=== PATIENT | female | born 1980 | race Caucasian/White ===

== ENCOUNTER 2016-09-11 08:19 | Outpatient (CLI) | payer BC ==
[~2016-09-11] VITALS: Ht 157.5 cm; Wt 66.5 kg
[2016-09-11 08:36] VITALS: Ht 157.5 cm; Wt 66.5 kg
[2016-09-11] MEDS ORDERED: PRENAT PO (08:37)
[2016-09-11 09:45] LABS: ADD UMIC YES; URINE BILIRUBIN (Dip) NEGATIVE (NEGATIVE); URINE BLOOD (Dip) 2+ (NEGATIVE); URINE COLOR LT. YELLOW (YELLOW); URINE GLUCOSE (Dip) NEGATIVE (NEGATIVE); URINE KETONES (Dip) NEGATIVE (NEGATIVE); URINE LEUKOCYTE ESTERASE (Dip) NEGATIVE (NEGATIVE); URINE NITRITE (Dip) NEGATIVE (NEGATIVE); URINE TOTAL PROTEIN (Dip) NEGATIVE (NEGATIVE); URINE UROBILINOGEN (Dip) 0.2 E.U./dL (0.1-1.0)
--- NOTE | 2016-09-11 09:53 | RADRPT ---
PROCEDURE: US OB. CLINICAL INDICATION: Size and dates , vaginal bleeding TECHNIQUE: Multiple sonographic images of the pelvis and gravid uterus were obtained. The images were reviewed on a PACS workstation. COMPARISON: No prior studies are available for comparison. FINDINGS: There is a single viable intrauterine gestation. Cardiac activity is present with 148 beats per min sarika. There is a vertex presentation. The placenta is anterior. There is no evidence for an abruption or placenta previa. There is a normal amount of amniotic fluid with an JESUS = 18.7 cm. Measurements were made in order to determine age. The results are as follows: BPD =8.2 cm HC =31.3 cm AC =32.9 cm FL =7.0 cm Estimated gestational age of approximately 35 weeks and 1 day based on ultrasound measurements. Clinical age: 35 weeks and 0 days. The estimated date of delivery is 10/15/16, based on ultrasound measurements. The EFW = 2803 g, 73.5%, based on LMP age. RPTAT: AA IMPRESSION: Single viable intrauterine gestation of approximately 35 weeks and 1 day based on ultrasound measur ements. .Neymar Strauss MD, Date Time Electronically viewed and signed by .Neymar Strauss MD, on 09/11/2016 09:53 .S/
[2016-09-11 10:04] LABS: ADD SCAN DIFF NO
[2016-09-11 10:09] LABS: BASOPHIL # 0.1 10^3/ul (0.0-0.1); BASOPHILS % 0.4 % (0.0-2.0); EOSINOPHILS # 0.2 10^3/ul (0.0-0.5); EOSINOPHILS % 1.9 % (0.0-7.0); HEMATOCRIT 38.6 % (37.0-47.0); HEMOGLOBIN 13.3 g/dl (12.0-16.0); LYMPHOCYTES # 1.5 10^3/ul (0.8-2.9); LYMPHOCYTES % 12.2 % (15.0-51.0); MEAN CORPUSCULAR HEMOGLOBIN 32.3 pg (29.0-33.0); MEAN CORPUSCULAR HGB CONC 34.5 g/dl (32.0-37.0); MEAN CORPUSCULAR VOLUME 93.7 fl (82.0-101.0); MEAN PLATELET VOLUME 9.9 fl (7.4-10.4); MONOCYTE # 0.9 10^3/ul (0.3-0.9); MONOCYTES % 7.1 % (0.0-11.0); NEUTROPHIL # 8.9 10^3/ul (1.6-7.5); NEUTROPHILS % 74.3 % (39.0-77.0); PLATELET COUNT 257 10^3/UL (140-415); RED BLOOD COUNT 4.12 10^6/ul (4.20-5.40); RED CELL DISTRIBUTION WIDTH 13.2 % (11.5-14.5)
[2016-09-11 10:40] LABS: BACTERIA,URINE FEW; URINE RBCS 0-2 /HPF (0)
--- NOTE | 2016-09-11 12:00 | CONS ---
Date/Time of Note Date/Time of Note DATE: 09/11/16 TIME: 11:54 Consultation Date/Type/Reason Admit Date/Time September 11, 2069 Triage consult This patient is a 36 years old 2 para 1 with 2 date of October 16, 2016 which makes her about 35 weeks . She came to triage area complaining of a cramping and slight vaginal bleeding since last night . On examination she is a well-developed well-nourished lady near term. Her vital signs were within normal limits ,blood pressure 19/82. Pulse rate 82. Temperature 98. On pelvic examination her cervix was closed thick and posterior no evidence of real vaginal bleeding slight pinkish discharge Reason for Consultation On ultrasound study. Her placenta was fundal the estimated weight was 2803 g. JESUS 11.7 cm her CBC and urine was within normal limits 24 HR Interval Summary Free Text/Dictation Disposition. Her contractions basically subsided with hydration. She is she was discharged home to be followed in the clinic. Patient was advised in case of a more contractions vaginal bleeding or any evidence of labor including rupture of membrane to return to the triage area again End of dictation thank you Detailed Summary Gastrointestinal: pain (SLIGHT abdominal pain, irregular contraction every 6-8 minutes) Genitourinary: bleeding (Slight pinkish vaginal discharge. As I mentioned on pelvic exam cervix was closed) Endocrine: No dry skin, No no complaints, No other, No polydypsia, No polyuria , No temp intolerance Exam/Review of Systems Results Result Diagram: 09/11/16 0910 Results 24 hrs Laboratory Tests Test 09/11/16 09:00 09/11/16 09:10 Urine Bacteria FEW Urine Bilirubin NEGATIVE Urine Clarity CLEAR Urine Color LT. YELLOW Urine Epithelial Cells FEW Urine Glucose NEGATIVE Urine Hemoglobin 2+ H Urine Ketones NEGATIVE Urine Leukocyte Esterase NEGATIVE Urine Microscopic RBC 0-2 Urine Microscopic WBC 2-5 Urine Nitrite NEGATIVE Urine Specific [place] 1.010 Urine Total Protein NEGATIVE Urine Urobilinogen 0.2 E.U./dL Urine pH 6.5 Basophils # 0.1 Basophils % 0.4 Eosinophils # 0.2 Eosinophils % 1.9 Hematocrit 38.6 Hemoglobin 13.3 Lymphocytes # 1.5 Lymphocytes % 12.2 L Mean Corpuscular Hemoglobin 32.3 Mean Corpuscular Hemoglobin Concent 34.5 Mean Corpuscular Volume 93.7 Mean Platelet Volume 9.9 Monocytes # 0.9 Monocytes % 7.1 Neutrophils # 8.9 H Neutrophils % 74.3 Nucleated Red Blood Cells # 0.0 Nucleated Red Blood Cells % 0.0 Platelet Count 257 Red Blood Count 4.12 L Red Cell Distribution Width 13.2 White Blood Count 12.0 H CALI GOTTLIEB MD Sep 11, 2016 12:00 Nucleated Red Blood Cells # 0.0 Nucleated Red Blood Cells % 0.0 Platelet Count 257 Red Blood Count 4.12 L Red Cell Distribution Width 13.2 White Blood Count 12.0 H CALI GOTTLIEB MD Sep 11, 2016 12:00
== END 2016-09-11 11:45 | disposition home or self-care (01) ==
LOC: OBT 08:19 → L-D 08:20 → OBT 11:45
PROVIDERS: ATTEND Obstetrics & Gynecology
DX: O26.893 Other specified pregnancy related conditions, third trimester (principal); R10.9 Unspecified abdominal pain; O46.93 Antepartum hemorrhage, unspecified, third trimester; O09.523 Supervision of elderly multigravida, third trimester; Z3A.35 35 weeks gestation of pregnancy
CPT/HCPCS: 36415; 76815; 81001; 85025; 86850; 86900; 86901; Z7500; 81003; G0463

== ENCOUNTER 2016-10-09 18:04 | Inpatient (IN) | payer BC ==
[~2016-10-09] VITALS: Ht 157.5 cm; Wt 67.0 kg
[~2016-10-09 18:04] MED LIST: PRENAT PO
[2016-10-09 18:14] VITALS: BP 130/65; PULSE 82; Ht 157.5 cm; Wt 67.0 kg
--- NOTE | 2016-10-09 19:59 | RADRPT ---
PROCEDURE: US OB. CLINICAL INDICATION: Leaking amniotic fluid. TECHNIQUE: Multiple sonographic images of the uterus were obtained. The images were revi ewed on a PACS workstation. COMPARISON: 09/11/2016. FINDINGS: There is a single live intrauterine gestation. heart rate is 133 beats per minute. Measurements were made in order to determine age. The results are as follows: BPD = 9.05 cm. HC = 33.54 cm. AC = 34.66 cm. FL = 7.70 cm. Estimated weight is 3545 +/- 532 grams. LMP growth percentile is 60 %. Menstrual age by ultrasound dates is 38 weeks 6 days. The estimated date of delivery is 10/17/2016. Amniotic fluid index is 9.9 cm. Position is cephalic and placenta is anterior grade III. There is no evidence for an abruption or pl acenta previa. IMPRESSION: 1. Single live intrauterine gestation of 38 weeks 6 days menstrual age by ultrasound dates. 2. The estimated date of delivery is 10/17/2016. 3. Amniotic fluid index is 9.9 cm. RPTAT: QQ .Harlan Boyce MD, Date Time Electronically viewed and signed by .Harlan Boyce MD, on 10/09/2016 19:59 .R/
[2016-10-09] MEDS ORDERED: LACTATED RINGER'S 1,000 ML IV PRN (21:28)
[2016-10-09] MEDS ORDERED: ACETAMINOPHEN/CODEINE #3 TAB PO PRN (21:30)
[2016-10-09] MEDS ORDERED: CARBOPROST 250 MCG INJ IM PRN (21:30)
[2016-10-09] MEDS ORDERED: OXYTOCIN 30 UNITS/LR 500 ML IV SCH ×2 (21:30)
[2016-10-09] MEDS ORDERED: MISOPROSTOL 200 MCG TAB PR PRN (21:30)
[2016-10-09] MEDS ORDERED: IBUPROFEN 600 MG TAB PO PRN (21:30)
[2016-10-09] MEDS ORDERED: OXYTOCIN 30 UNITS/LR 500 ML IV PRN (21:30)
[2016-10-09] MEDS ORDERED: BUTORPHANOL 2 MG INJ IV PRN ×2 (21:30)
[2016-10-09] MEDS ORDERED: METHYLERGONOVINE 0.2 MG INJ IM PRN (21:30)
[2016-10-09] MEDS ORDERED: LIDOCAINE 1% (MPF) 30 ML INJ INJ PRN (21:30)
[2016-10-09] MEDS: LACTATED RINGER'S 1,000 ML IV SCH (21:53)
[2016-10-09] MEDS ORDERED: AMPICILLIN 2 GM/NS (PMX) 100 ML IV ONE (22:00)
[2016-10-09 22:10] LABS: ADD SCAN DIFF NO
[2016-10-09 22:11] LABS: BASOPHIL # 0.1 10^3/ul (0.0-0.1); BASOPHILS % 0.4 % (0.0-2.0); EOSINOPHILS # 0.2 10^3/ul (0.0-0.5); EOSINOPHILS % 1.7 % (0.0-7.0); HEMATOCRIT 38.1 % (37.0-47.0); HEMOGLOBIN 13.3 g/dl (12.0-16.0); LYMPHOCYTES # 3.3 10^3/ul (0.8-2.9); LYMPHOCYTES % 23.3 % (15.0-51.0); MEAN CORPUSCULAR HEMOGLOBIN 32.5 pg (29.0-33.0); MEAN CORPUSCULAR HGB CONC 34.9 g/dl (32.0-37.0); MEAN CORPUSCULAR VOLUME 93.2 fl (82.0-101.0); MONOCYTE # 0.9 10^3/ul (0.3-0.9); MONOCYTES % 6.3 % (0.0-11.0); NEUTROPHIL # 9.3 10^3/ul (1.6-7.5); NEUTROPHILS % 66.4 % (39.0-77.0); PLATELET COUNT 265 10^3/UL (140-415); RED BLOOD COUNT 4.09 10^6/ul (4.20-5.40)
[2016-10-09 22:27] LABS: INR 0.91; PROTIME 12.2 Sec (12.2-14.2)
[2016-10-09 22:28] LABS: PARTIAL THROMBOPLASTIN TIME 28.3 Sec (25.0-35.0)
[2016-10-10] MEDS: LACTATED RINGER'S 1,000 ML IV SCH ×2 (02:05→06:41)
[2016-10-10] MEDS: AMPICILLIN 1 GM/NS (PMX) 50 ML IV SCH ×3 (02:05→10:00)
[2016-10-10] MEDS ORDERED: TERBUTALINE 1 ML ONE (06:10)
--- NOTE | 2016-10-10 06:19 | PN ---
Date/Time of Note Date/Time of Note DATE: 10/10/16 TIME: 06:18 OB Subjective Subjective Subjective 36 yo in labor, 2-3 cm w prolonged decel from baseline of 140's to 70's, lasting 3 min; FHT had accels prior to this and recovered spontaneously., Ctx 2-3 min. Patient pineda carvalho and Dr. Imani eldridge. HONEY AGUILAR MD Oct 10, 2016 06:19
[2016-10-10] MEDS ORDERED: CEFAZOLIN 2 GM/50 ML (PMX) 50 ML IV SCH (06:30)
[2016-10-10] MEDS ORDERED: TERBUTALINE 1 MG/ML INJ SC ONE (07:00)
[2016-10-10] MEDS ORDERED: CITRIC ACID/NA CITRATE 30 ML CUP ONE (07:11)
[2016-10-10] MEDS ORDERED: morphine SULFATE/PF (10 MG/10 ML) INJ ONE (07:18)
[2016-10-10] MEDS ORDERED: PHENYLephrine (100 MCG/ML) 5ML SYG ONE (07:19)
[2016-10-10] MEDS ORDERED: CITRIC ACID/NA CITRATE 30 ML CUP PO ONE (07:30)
[2016-10-10] MEDS ORDERED: ONDANSETRON 4 MG INJ ONE (07:31)
[2016-10-10] MEDS ORDERED: FENTAnyl 50 MCG/ML VIAL ONE (07:54)
[2016-10-10] MEDS ORDERED: HYDROmorphONE (0.2 MG/ML) 10ML SYG IV PRN ×2 (08:00)
[2016-10-10] MEDS ORDERED: NALOXONE (0.4 MG/ML) INJ IV PRN (08:00)
[2016-10-10] MEDS ORDERED: FENTAnyl 50 MCG/ML VIAL IV PRN (08:00)
[2016-10-10] MEDS ORDERED: MEPERIDINE 25 MG INJ IV PRN (08:00)
[2016-10-10] MEDS ORDERED: ONDANSETRON 4 MG INJ IV PRN (08:00)
[2016-10-10] MEDS ORDERED: HYDROmorphONE 1 MG/ML SYG IV PRN ×2 (08:00)
[2016-10-10] MEDS ORDERED: PROCHLORPERAZINE 10 MG INJ IV PRN (08:00)
[2016-10-10] MEDS ORDERED: DIPHENHYDRAMINE 50 MG INJ IV PRN (08:00)
--- NOTE | 2016-10-10 08:07 | PREOPHP ---
DATE OF ADMISSION: 10/09/2016 HISTORY OF PRESENT ILLNESS: A 36-year-old female, 2, para 1, with estimated date of delivery of 10/16/2016 at 39 weeks' gestation, who presented with spontaneous rupture of membranes. PAST MEDICAL HISTORY: Unremarkable. ALLERGIES: NO KNOWN ALLERGIES. FAMILY HISTORY: Diabetes and hypertension. PHYSICAL EXAMINATION: VITAL SIGNS: The patient is afebrile. Vital signs are stable. HEAD, NECK AND CHEST: Examination is within normal limits. ABDOMEN: Soft, nontender and gravid. EXTREMITIES: Within normal limits. NEUROLOGIC: Within normal limits. HOSPITAL COURSE: The patient was admitted with spontaneous rupture of membranes. at the time of admission, the patient was 1 cm dilated. The patient was monitored. The patient has had prolonged heart decelerations. The cervix remains about 1 to 2 cm dilated. The patient was counseled that due to heart decelerations, the patient cannot have augmentation of labor and there has been no progress of labor. The patient is for delivery by primary section due to category 2 heart tracings remote from delivery. The risks, benefits and alternatives of the procedure were explained to the patient. The patient said she understood and gave informed consent for the procedure. Dictated By: HELEN DOWNS/BOBBI Conf#: [id number] DID#: [id number] MTDD
--- NOTE | 2016-10-10 09:01 | OPR ---
DATE OF OPERATION: 10/10/2016 PREOPERATIVE DIAGNOSES: at term, with category 2 heart tracings, remote from delive ry. POSTOPERATIVE DIAGNOSES: at term with category 2 heart tracings, remote from delive ry. OPERATION PERFORMED: Primary low transverse section. SURGEON: Helen Diallo MD LIVE OUT NANNY: Dr. Travis ANESTHESIA: Spinal. ANESTHESIOLOGIST: Dr. Washburn PROCEDURE: The patient was taken to the operating room and placed on the operating table. After gaffney ccessful spinal anesthesia was given the patient was placed in the supine position. The area was pr epared and draped in the usual sterile fashion. Spinal anesthesia was tested and was satisfactory. Using a scalpel, a Pfannenstiel incision was made about 2 fingerbreadths above the symphysis pubis. The incision was carried down to the fascia. The fascia was incised and extended bilaterally with Cowart scissors. Two Grant's were used to separate the fascia from the muscle. The muscle was diss ected down to the peritoneum. The peritoneum was bluntly entered. Using scalpel, a small transvers e incision was made in the lower segment of the uterus. Upon entering the uterine cavity, the persaud ge scissors were inserted to extend the incision bilaterally and curved up. The baby was delivered from a cephalic presentation. After suctioning of clear amniotic fluid, the baby was handed off to the team in attendance. Apgars were 9 and 9. The placenta was delivered without difficult y. The uterus was closed with #1 Monocryl continuous locked. After assuring hemostasis, both ovari es and tubes were inspected and all looked normal. The peritoneal cavity was irrigated with warm sa line. The peritoneum was closed with 2-0 Vicryl continuous. The fascia was closed with #1 Vicryl c ontinuous in 2 segments. The skin was closed with logan. ESTIMATED BLOOD LOSS: 500 mL. COMPLICATIONS: None. COUNTS: All counts were correct. Dictated By: HELEN DIALLO MD GD/NTS Conf#: [id number] DID#: [id number]
--- NOTE | 2016-10-10 09:41 | DELSUM ---
Delivery Summary A-C Datetime Report Generated by CPN: 10/10/2016 09:41 DELIVERY PERSONNEL Boat Hoist Operator: Ghukasyan, Dolly MATERNAL INFORMATION Delivery Anesthesia: Spinal Medications in Delivery: 30 UNITS OF PIT IN 500 CC LR Estimated Blood Loss (ml): 500 Placenta Cultured: No Maternal Complications: Other RN Comments: SROM AT 0600 10/09/2016 LABOR SUMMARY EDC: 10/16/2016 00:00 No. Babies in Womb: 0 Attempted: No Labor Anesthesia: None LABOR INFORMATION Reason for Induction: Not Applicable Onset of Labor: 10/10/2016 19:30 Oxytocin: N/A Group B Beta Strep: Negative Group B Beta Strep: Negative Antibiotics # of Doses: 4 Antibiotics Time of Last Dose: 10/10/2016 07:31 Steroids Given: None Reason Steroids Not Administered: Not Applicable MEMBRANES Membranes Rupture Method: Spontaneous Membranes Rupture Method: Spontaneous Rupture of Membranes: 10/09/2016 06:00 Rupture of Membranes: 10/09/2016 06:00 Length of Rupture (hr): 25.70 Length of Rupture (hr): 25.70 Amniotic Fluid Color: Clear Amniotic Fluid Color: Clear Amniotic Fluid Amount: Small Amniotic Fluid Amount: Small Amniotic Fluid Odor: None Amniotic Fluid Odor: None STAGES OF LABOR Stage 3 hr: 0 Stage 3 min: 1 Total Time in Labor hr: -11 Total Time in Labor min: -47 CSECTION DELIVERY Primary Indication: Nonreassuring Stat CSection Urgency: Emergency CSection Incidence: Primary Labor: Labor Elective: Elective CSection Incision: Lower Uterine Transverse BABY A INFORMATION Delivery Date/Time: 10/10/2016 07:42 Method of Delivery: Born in Route : No : N/A Forceps: N/A Vacuum Extraction: N/A Shoulder Dystocia : N/A SHOULDER DYSTOCIA BABY A Infant Delivery Date/Time: 10/10/2016 07:42 PRESENTATION/POSITION BABY A Presentation: Cephalic Cephalic Presentation: Vertex Vertex Position: Left Occipital Anterior Breech Presentation: N/A PLACENTA INFORMATION BABY A Placenta Delivery Time : 10/10/2016 07:43 Placenta Method of Delivery: Manual Removal Placenta Status: Delivered SCORES BABY A Heart Rate 1 min: >100 bpm Resp Effort 1 min: Good Cry Reflex Irritability 1 min: Cough/Sneeze/Pulls Away Muscle Tone 1 min: Active Motion Color 1 min: Body Redgranite, Extremit Blue Resuscitation Effort 1 min: Tactile Stimulation SCORE 1 MIN: 9 Heart Rate 5 min: >100 bpm Resp Effort 5 min: Good Cry Reflex Irritability 5 min: Cough/Sneeze/Pulls Away Muscle Tone 5 min: Active Motion Color 5 min: Body Redgranite, Extremit Blue Resuscitation Effort 5 min: Tactile Stimulation SCORE 5 MIN: 9 INFORMATION BABY A Gestational Age at Delivery: 39.1 Gestational Status: Full Term- 39- 40.6 Weeks Outcome : Liveborn Condition : Stable Sex: Male IDENTIFICATION/MEDS BABY A ID Band Number: [id number] ID Band Location: Right Leg; Left Arm Sensor Applied: Yes Sensor Number: [id number] Sensor Location : Cord Clamp Vitamin K Given : Not Given Erythromycin Given: Not Given WEIGHT/LENGTH BABY A Infant Birthweight (gm): 3480 Weight (lb): 7 Infant Weight (oz): 11 Length (in): 19.50 Infant Length (cm): 49.53 CORD INFORMATION BABY A No. Cord Vessels: 3 Nuchal Cord : N/A Cord Blood Taken: Yes Suction: Mouth; Nose ASSESSMENT BABY A Infant Complications: Extended Bradycardi Physical Findings at Delivery: Within Normal Limits Infant Respirations: Appears Normal [employer] Manager/ALS Called : No Infant Care By: URIEL Leone RN Transferred To: Remains with Mother
[2016-10-10] MEDS: KETOROLAC 30 MG INJ IV PRN (11:12)
[2016-10-10 12:20] VITALS: BP 124/64; PULSE 82; RESP 19
[2016-10-10] MEDS ORDERED: LACTATED RINGER'S 1,000 ML IV SCH (12:24)
[2016-10-10] MEDS ORDERED: OXYCODONE/ACETAMINOPHEN (5/325) TAB PO PRN (12:30)
[2016-10-10] MEDS ORDERED: CARBOPROST 250 MCG INJ IM PRN (12:30)
[2016-10-10] MEDS ORDERED: LANOLIN 7 GM TUBE TOP PRN (12:30)
[2016-10-10] MEDS ORDERED: METHYLERGONOVINE 0.2 MG INJ IM PRN (12:30)
[2016-10-10] MEDS ORDERED: OXYTOCIN 30 UNITS/LR 500 ML IV PRN (12:30)
[2016-10-10] MEDS ORDERED: MISOPROSTOL 200 MCG TAB PR PRN (12:30)
[2016-10-10] MEDS: OXYTOCIN 30 UNITS/LR 500 ML IV SCH ×2 (12:33→17:37)
[2016-10-10 12:35] VITALS: BP 126/71; PULSE 78; RESP 18
[2016-10-10 12:50] VITALS: BP 132/72; PULSE 74; RESP 17
[2016-10-10 13:20] VITALS: BP 134/67; PULSE 86; RESP 19
[2016-10-10 15:10] VITALS: BP 124/65; PULSE 86; RESP 19
[2016-10-10] MEDS: IBUPROFEN 800 MG TAB PO SCH ×2 (17:37→22:00)
[2016-10-10 20:00] VITALS: BP 118/60; PULSE 83; RESP 17
[2016-10-10] MEDS: SENNA/DOCUSATE NA (8.6MG/50MG) TAB PO SCH (21:00)
[2016-10-11] VITALS: BP 117/54; PULSE 84; RESP 18
[2016-10-11 04:00] VITALS: BP 116/58; PULSE 81; RESP 17
[2016-10-11] MEDS: KETOROLAC 30 MG INJ IV PRN (04:51)
[2016-10-11] MEDS: IBUPROFEN 800 MG TAB PO SCH ×3 (06:00→21:08)
[2016-10-11 07:41] LABS: ADD SCAN DIFF NO
[2016-10-11 07:45] VITALS: BP 111/65; PULSE 80; RESP 18
[2016-10-11 07:48] LABS: BASOPHILS % 0.3 % (0.0-2.0); EOSINOPHILS # 0.1 10^3/ul (0.0-0.5); EOSINOPHILS % 0.7 % (0.0-7.0); HEMOGLOBIN 10.1 g/dl (12.0-16.0); LYMPHOCYTES % 14.8 % (15.0-51.0); MEAN CORPUSCULAR HEMOGLOBIN 32.2 pg (29.0-33.0); MEAN CORPUSCULAR HGB CONC 33.7 g/dl (32.0-37.0); MEAN CORPUSCULAR VOLUME 95.5 fl (82.0-101.0); MEAN PLATELET VOLUME 9.8 fl (7.4-10.4); MONOCYTE # 0.7 10^3/ul (0.3-0.9); NEUTROPHIL # 10.4 10^3/ul (1.6-7.5); NEUTROPHILS % 78.1 % (39.0-77.0); PLATELET COUNT 213 10^3/UL (140-415); RED BLOOD COUNT 3.14 10^6/ul (4.20-5.40); RED CELL DISTRIBUTION WIDTH 13.2 % (11.5-14.5); WHITE BLOOD COUNT 13.3 10^3/ul (4.8-10.8)
[2016-10-11] MEDS: SENNA/DOCUSATE NA (8.6MG/50MG) TAB PO SCH ×2 (08:16→21:08)
[2016-10-11] MEDS: OXYCODONE/ACETAMINOPHEN (5/325) TAB PO PRN ×2 (08:17→18:20)
[2016-10-11 16:00] VITALS: BP 130/63; PULSE 84; RESP 18
--- NOTE | 2016-10-11 17:34 | QN ---
Documentation Comment No complaint Afebrile VSS Abdomen soft NT POD #1 Stable Ambulate Advance diet. HELEN ORDONEZ MD Oct 11, 2016 17:34
[2016-10-11 20:00] VITALS: BP 120/70; PULSE 94; RESP 18
[2016-10-12 04:00] VITALS: BP 115/60; PULSE 79; RESP 18
[2016-10-12] MEDS: IBUPROFEN 800 MG TAB PO SCH ×3 (05:36→22:39)
[2016-10-12 08:00] VITALS: BP 124/66; PULSE 75; RESP 18
[2016-10-12] MEDS: SENNA/DOCUSATE NA (8.6MG/50MG) TAB PO SCH ×2 (09:13→21:08)
[2016-10-12 15:31] VITALS: BP 127/87; PULSE 82; RESP 18
--- NOTE | 2016-10-12 19:12 | DS ---
DATE OF ADMISSION: 10/09/2016 DATE OF DISCHARGE: 10/13/2016 ADMITTING DIAGNOSIS: at term with spontaneous rupture of membranes. HISTORY: A 36-year-old female 2, para 1 at admission, para 2 at time of discharge with term , presented with spontaneous rupture of membranes. In early labor the patient had h eart decelerations. On October 10, 2016, after obtaining informed consent, the patient underwent a pr imary low transverse section due to a category 2 heart tracing, remote from delivery. The patient's operation was uncomplicated. Postoperatively, patient was given clear liquid diet, which was advanced to a regular diet, which she tolerated well. The patient is discharged on postop day #3 after having had adequate bladder and bowel function. CONDITION ON DISCHARGE: Stable. DISCHARGE INSTRUCTIONS DIET: Regular. ACTIVITIES: Pelvic rest and no strenuous activities. MEDICATIONS: 1. Motrin as needed for pain. 2. Continue with vitamins and ferrous sulfate. Follow up in clinic in 3 days. FINAL DIAGNOSES 1. Term , delivered by section. 2. Category 2 heart tracing. 3. Mother with single liveborn. Dictated By: HELEN ORDONEZ MD GD/NTS Conf#: [id number] DID#: [id number]
[2016-10-12 20:30] VITALS: BP 125/71; PULSE 86; RESP 18
[2016-10-13 04:00] VITALS: BP 117/69; PULSE 76; RESP 18
[2016-10-13] MEDS: IBUPROFEN 800 MG TAB PO SCH (05:43)
[2016-10-13] MEDS: OXYCODONE/ACETAMINOPHEN (5/325) TAB PO PRN (08:48)
[2016-10-13] MEDS: SENNA/DOCUSATE NA (8.6MG/50MG) TAB PO SCH (08:48)
[2016-10-13 08:55] VITALS: BP 125/71; PULSE 88; RESP 18
[2016-10-13] MEDS ORDERED: DIPHTH/TET/ACEL PERTUSS (ADULT) 0.5 ML VIAL IM* ONE (09:00)
== END 2016-10-13 15:50 | disposition home or self-care (01) | DRG 766 ==
LOC: L-D 18:04 → OBT 18:04 → L-D 21:20 → OBT 21:20 → L-D 10-10 07:16 → PP1 10-10 12:23
PROVIDERS: ADMIT Obstetrics & Gynecology; ATTEND Obstetrics & Gynecology
PROC: 10D00Z1 Extraction of Products of Conception, Low, Open Approach (ICD-10-PCS; principal; 2016-10-10 07:15)
DX: O76 Abnormality in fetal heart rate and rhythm complicating labor and delivery (principal); Z37.0 Single live birth; Z3A.39 39 weeks gestation of pregnancy
CPT/HCPCS: 76815; 84112; 85025; 85610; 85730; 86592; 86900; 86901; 87340; 88307; 90715; 94760; 99464; G0463; J0290; J0690; J1885; J2274; J2370; J2405; J2590; J3010; J3105; J7120